=== PATIENT | female | born 1950 | race Caucasian/White ===

== ENCOUNTER 2017-06-28 16:12 | Emergency (ER) ==
[2017-06-28 16:20] VITALS: TEMP 98.7; BMI 28.3
[2017-06-28] MEDS ORDERED: ZESTRIL PO STA ×2 (16:37→17:55)
--- NOTE | 2017-06-28 17:48 | CT ---
Exam: Head CT. Date: 06/28/2017. Comparison: None. HISTORY: Pain. TECHNIQUE: Helical scan of the brain was performed. FINDINGS: The calvarium is intact. The paranasal sinuses and mastoid air cells are clear. The brainstem and cerebellum are within normal limits. There is mild cerebral volume loss. No abnor mal intra or extra-axial fluid, mass or mass effect is present. There is no midline shift or hydroce phalus. No large vessel infarct or hemorrhages identified. The smith-white interface is maintained. Impression: No acute intracranial findings. Senile senescent changes.
--- NOTE | 2017-06-28 17:58 | ED.PDOC ---
General ED Provider: Dr. LINO SWANSON Chief Complaint: Hypertension Stated Complaint: HIGH BLOOD PRESSURE Time Seen by Physician: 16:20 (NO LOC HAS SOME HEADACHE ) Mode of Arrival: Walk-In Information Source: Patient Exam Limitations: No limitations Primary Care Provider: ALICIA DAILY Nursing and Triage Documentation Reviewed and Agree: Yes Reviewed sepsis parameters & appropriate labs ordered?: Yes System Inflammatory Response Syndrome: Not Applicable Sepsis Protocol: For patient's 13 years and over: Temp is 96.8 and below OR 101 and greater Pulse >90 BPM Resp >20/minute Acutely Altered Mental Status Are patient's symptoms suggestive of a new infection, such as: -Pneumonia -Skin, Soft Tissue -Endocarditis -UTI -Bone, Joint Infection -Implantable Device -Acute Abdominal Infection -Wound Infection -Meningitis -Blood Stream Catheter Infection -Unknown System Inflammatory Response Syndrome: Not Applicable Cardiovascular Complaint Exam - Hypertension Complaint/Exam Onset/Duration: 2 HRS AGO 190/100 Symptoms Are: Still present Timing: Constant Reported B/P Prior to Arrival: SEE ABOVE Aggravating: Reports: None Alleviating: Reports: None Associated Signs and Symptoms: Denies: Chest pain, Vision changes, Anxiety, Recent stress, Headache, Numbness, Tingling, Weakness, Dizziness, Short of air, Swelling Related History: Reports: Similar episode Related Surgical History: Reports: None Cardiac Risk Factors: Reports: Hypertension Recent Change in Medications: No A/V Nicking: No Papilledema Present: No JVD Present: No Carotid Bruit Present: No Femoral Pulses Bounding: No Differential Diagnoses: Hypertension Quality Indicator For Non-Traumatic Chest Pain/Syncope: EKG Performed Review of Systems - Review Of Systems Constitutional: Reports: No symptoms Eyes: Reports: No symptoms Ears, Nose, Mouth, Throat: Reports: No symptoms Respiratory: Reports: No symptoms Cardiac: Reports: Chest pain GI: Reports: No symptoms : Reports: No symptoms Musculoskeletal: Reports: No symptoms Skin: Reports: No symptoms Neurological: Reports: No symptoms Endocrine: Reports: No symptoms Hematologic/Lymphatic: Reports: No symptoms All Other Systems: Reviewed and Negative Past Medical History - Past Medical History Endocrine: Reports: DM 2, Hypothyroid Cardiovascular: Reports: Hypertension Respiratory: Reports: None Hematological: Reports: None Gastrointestinal: Reports: None Genitourinary: Reports: None Neuro/Psych: Reports: None Musculoskeletal: Reports: None Cancer: Reports: None Last Menstrual Period: hysterectomy - Surgical History General Surgical History: Reports: Lap Band - Family History Family History: Reports: Unknown - Social History Smoking Status: Never smoker Hx Substance Use: No Alcohol Screening: None Physical Exam - Physical Exam Appearance: Well-appearing, No pain distress, Well-nourished Eyes: SUSAN, EOMI, Conjunctiva clear ENT: Ears normal, Nose normal, Oropharynx normal Respiratory: Airway patent, Breath sounds clear, Breath sounds equal, Respirations nonlabored Cardiovascular: RRR, Pulses normal, No rub, No murmur GI/: Soft, Nontender, No masses, Bowel sounds normal, No Organomegaly Musculoskeletal: Normal strength, ROM intact, No edema, No calf tenderness Skin: Warm, Dry, Normal color Neurological: Sensation intact, Motor intact, Reflexes intact, Cranial nerves intact, Alert, Oriented Psychiatric: Affect appropriate, Mood appropriate Interpretation - Radiology Interpretation Radiology Interpretation By: Radiologist Radiology Results: No acute changes Critical Care Note - Critical Care Note Total Time (mins): 0 Course - Course Hematology/Chemistry: 06/28/17 16:49 06/28/17 16:49 Orders, Labs, Meds: Lab Review 06/28/17 06/28/17 06/28/17 16:49 16:49 16:49 WBC 6.52 RBC 4.89 Hgb 14.0 Hct 41.5 MCV 84.9 MCH 28.6 MCHC 33.7 RDW Coeff of Tee 13.4 Plt Count 250 Immature Gran % (Auto) 0.3 Neut % (Auto) 61.0 Lymph % (Auto) 24.8 Atkinson % (Auto) 10.4 H Eos % (Auto) 2.0 Baso % (Auto) 1.5 Immature Gran # (Auto) 0.0 Neut # (Auto) 4.0 Lymph # (Auto) 1.6 Atkinson # (Auto) 0.7 Eos # (Auto) 0.1 Baso # (Auto) 0.1 Sodium 139 Potassium 4.2 Chloride 105 Carbon Dioxide 23 Anion Gap 15.2 BUN 17 Creatinine 0.85 Estimated GFR (MDRD) 67.00 BUN/Creatinine Ratio 20.00 Glucose 110 Calcium 9.4 Total Bilirubin 0.3 AST 15 ALT 19 Alkaline Phosphatase 58 Total Creatine Kinase 52 Troponin I < 0.0100 Total Protein 7.0 Albumin 3.7 Globulin 3.3 Albumin/Globulin Ratio 1.12 Orders Category Date Time Status CBC W/ AUTO DIFF Stat LAB 06/28/17 16:49 Completed COMPREHENSIVE METABOLIC PANEL Stat LAB 06/28/17 16:49 Completed CREATINE KINASE Stat LAB 06/28/17 16:49 Completed TROPONIN I Stat LAB 06/28/17 16:49 Completed Lisinopril [Zestril] MEDS 06/28/17 16:37 Discontinued 20 mg PO ONCE STA Lisinopril [Zestril] MEDS 06/28/17 17:55 Stat 20 mg PO ONCE STA CT HEAD W/O CONTRAST Stat RADS 06/28/17 16:53 Completed Medications Generic Name Dose Route Start Last Admin Trade Name Freq PRN Reason Stop Dose Admin Lisinopril 20 mg 06/28/17 17:55 Zestril PO 06/28/17 17:56 ONCE STA Discontinued Medications Generic Name Dose Route Start Last Admin Trade Name Freq PRN Reason Stop Dose Admin Lisinopril 20 mg 06/28/17 16:37 06/28/17 16:46 Zestril PO 06/28/17 16:38 20 mg ONCE STA Administration Vital Signs: Temp Pulse Resp BP Pulse Ox 06/28/17 16:12 98.7 F 73 16 202/93 H 98 SHABNAM Risk Score SHABNAM Risk Score: Risk Score Odds of by 30D 0 0.1 (0.1-0.2) 1 0.3 (0.2-0.3) 2 0.4 (0.3-0.5) 3 0.7 (0.6-0.9) 4 1.2 (1.0-1.5) 5 2.2 (1.9-2.6) 6 3.0 (2.5-3.6) 7 4.8 (3.8-6.1) Departure - Departure Time of Disposition: 19:00 Disposition: HOME SELF-CARE Discharge Problem: Hypertension Qualifiers: Hypertension type: unspecified Qualified Code(s): I10 - Essential (primary) hypertension Instructions: Hypertension (ED) Condition: Good Pt referred to PMD for follow-up: Yes IPMP verified?: No Additional Instructions: Please call your Family Physician as soon as possible to schedule a follow-up appointment. Allergies/Adverse Reactions: Allergies Penicillins Adverse Reaction (Verified 06/28/17 16:21) Home Medications: Ambulatory Orders Enalapril Maleate [Vasotec] 5 mg PO BID 05/01/13 Famotidine [Pepcid] 1 tab PO DAILY 05/01/13 Labetalol HCl [Trandate] 100 tab PO BID 05/01/13 Calcium Carbonate/Vitamin D3 [Calcium 600 + Vit D Tablet] 1 each PO DAILY Fluticasone Propionate [Flonase Allergy Relief] 9.9 ml NS DAILY 06/28/17 Disposition Discussed With: Patient
[2017-06-28 18:42] VITALS: BP 181/87
[2017-06-28] MEDS ORDERED: NORVASC PO STA (18:45)
[2017-06-28] MEDS ORDERED: CATAPRES PO STA (19:12)
== END 2017-06-28 20:05 | disposition home or self-care (01) ==
LOC: ED 16:12
DX: I10 Essential (primary) hypertension (principal); R51 Headache; E11.9 Type 2 diabetes mellitus without complications; E03.9 Hypothyroidism, unspecified
CPT/HCPCS: 36415; 80053; 82550; 84484; 85025; 99284

== ENCOUNTER 2017-08-26 09:58 | Outpatient (CLI) ==
--- NOTE | 2017-08-27 11:35 | MAMMO ---
EXAM: Bilateral digital screening mammogram (2-D and 3-D) History: Screening Comparison: Bilateral mammogram 08/01/2014 Findings: MLO and CC views of bilateral breasts demonstrate scattered fibroglandular breast parenchy ma. CAD was reviewed by the radiologist. Tomosynthesis was performed. Stable benign calcification w ithin the left breast. There are no dominant masses, no suspicious microcalcifications and no frank ectural distortions. Impression: Benign stable mammogram. Recommend followup routine screening mammography in 1 year. BIRADS 2
== END 2017-08-26 09:59 | disposition home or self-care (01) ==
LOC: RAD 09:58
PROVIDERS: ATTEND Family Medicine
DX: Z12.31 Encounter for screening mammogram for malignant neoplasm of breast (principal)
CPT/HCPCS: 77067

== ENCOUNTER 2017-09-15 12:58 | Outpatient (CLI) | payer OTHER ==
--- NOTE | 2017-09-15 13:58 | DI ---
EXAM: Three views of the right fingers. History: Pain of the right third digit. Findings: No acute fracture or dislocation. Mild to moderate polyarticular joint space narrowing wi th small osteophytes. Incidental subchondral cyst at the base of the middle phalanx of the third dig it most likely degenerative in nature. No periostitis. Soft tissue swelling of the third digit. Impression: 1. No acute osseous abnormality. 2. Mild to moderate osteoarthritis.
== END 2017-09-15 12:59 | disposition home or self-care (01) ==
LOC: RAD 12:58
PROVIDERS: ATTEND Family Medicine
DX: M79.644 Pain in right finger(s) (principal)

== ENCOUNTER 2018-02-14 12:48 | Outpatient (CLI) | payer OTHER ==
--- NOTE | 2018-02-14 15:16 | MRI ---
EXAM: MRI right shoulder without contrast. HISTORY: Right cuff tendonitis. Ongoing pain. No new injury. No right shoulder surgery reported.. TECHNIQUE: Using a local coil on a high field strength magnet multiplanar multisequence MRI was perf ormed of the right shoulder without intravenous or intra-articular gadolinium contrast.. COMPARISON: MRI right shoulder 08/01/2014. FINDINGS: I do not have prior radiographs of the right shoulder available for comparison at the time of this dictation. A Type I/I I acromion present. Coracoacromial ligament/arch intact with thickening. Right acromiocl avicular joint degenerative arthrosis/osteoarthrosis. Deltoid musculature normal signal intensity. Free fluid subacromial/subdeltoid bursa. Muscle bulk of the rotator cuff shows no acute muscle strain or definitive atrophy. Diffuse supraspi natus tendinosis. High-grade tearing supraspinatus with full-thickness extent.. This area of tearin g is full width and measures upwards of 24 mm in length. Infraspinatus tendinosis. Posterior inferio r intact teres minor tendon fibers. Anterior subscapularis tendinosis with low grade partial thickne ss rim rent tearing over cranial to central fibers. The long head of the biceps tendon shows intact fibers located in expected position within the bicipital groove with tendinosis and partial thickness tearing. The right humeral head is within normal limit in morphology and seated. No right glenohumeral joint centered subchondral bone marrow edema or bone erosions. Small right glenohumeral joint effusion. R ight glenoid labrum grossly intact on this non-arthrographic examination.. IMPRESSION: Right acromioclavicular joint degenerative arthrosis/osteoarthrosis. Diffuse supraspinatus tendinosis. High-grade tearing with full-thickness extent. This is full width measuring upwards of 24 mm in length. Infraspinatus tendinosis. Free fluid subacromial/subdeltoid bursa. The anterior subscapularis tendinosis with low grade partial thickness rim rent tearing over cranial to central fibers. Proximal long head biceps tendinosis and partial thickness tearing. Small right glenohumeral joint effusion. Recommendation is obtainment and correlation with plain film radiographs of the right shoulder as non e are available for comparison at the time of this dictation.
== END 2018-02-14 12:49 | disposition home or self-care (01) ==
LOC: RAD 12:48
PROVIDERS: ATTEND Orthopaedic Surgery
DX: M75.81 Other shoulder lesions, right shoulder (principal)

== ENCOUNTER 2018-04-27 10:00 | Outpatient (RCR) ==
--- NOTE | 2018-04-21 16:14 | RS.OPPTEV2 ---
Date of Note: 04/21/18 Visit #: 1 Number of visits approved by Insurance: n/a Date of Evaluation: 04/21/18 Payer Source: MEDICARE Date of Onset/Injury/Change in Status: 04/08/18 Surgery Performed?: Yes (R total shld replacement 04/08/18) Treatment Diagnosis: aftercare following total shld replacement, shld pain History of Condition/Mechanism of Injury:: pt reports has had long history of R shld pain. Reports that she underwent R reverse total shld replacement on . Prior Level of Function.....Patient was independent with: ADL's, Self Care, Work /Vocation, Caregiving, Ambulation/Mobility, Community Integration/Access Functional Limitations: Sleep, Self Care, ADL's, Reaching, Pushing, Pulling, Lifting, Carrying Current Subjective/complaints:: pt reports that she got her tim out earlier this week. States the doctor wants her to work on ROM. Treatment Side (optional): Right *Precautions: LIMIT EXTERNAL ROTATION TO NEUTRAL Medical History Medical History: Hypertension, Arthritis Surgical History: Shoulder Replacement (04/08/18) Smoking Status: Never smoker Hx Home Medications: tylenol Patient's Goals: return to normal daily activities with less pain, be able to do my own hair. Pain Assessment - Pain Description Pain Location: R shld Pain Description: Aching Current Pain Intensity: 4/10 Functional Outcome Measure UE Functional Index: 22 - G Codes & Severity Modifier G Codes & Modifier: n/a Source of G Code score: n/a Observation - Observation Inspection: incisions appear closed no open areas, with no erythema noted. Posture: Forward Head, Rounded Shoulders, Increased Thoracic Kyphosis Handedness: Right Gait - Gait Pattern General Gait Pattern Observation: No Deviations/Normal General Range of Motion: LUE and BLE WFL's Muscle Strength: LUE 5/5. BLE 5/5. R UE elbow, wrist and hand atleast 3/5, Shoulder ROM: Left WFL's Shoulder Muscle Strength: Left WFL's - Right Shoulder ROM Right Shoulder Flexion: 61 (PROM) Right Shoulder Abduction: 50 (PROM) Right Shoulder Internal Rotation: 28 Right Shoulder External Rotation: 18 Right Shoulder ROM Limitations: Soft Tissue Tightness, Muscle Weakness, Pain Palpation Palpation Findings: Tenderness Comments:: tenderness noted to anterior and lateral shld. Sensation - Sensation Right Upper Extremity: Intact/Normal Left Upper Extremity: Intact/Normal Right Lower Extremity: Intact/Normal Left Lower Extremity: Intact/Normal Balance - Sitting Balance Static Sitting Balance: Normal Dynamic Sitting Balance: Normal - Standing Balance Static Standing Balance: Normal Dynamic Standing Balance: Normal - Heat/Cryotherapy Treatment: Cryotherapy Comments:: R shld Interventions - Exercise/Activities/Manual Therapy Exercises/Activities: pt received PROM R shld flex, abd, as well as IR and ER within pain free ROM. pt performed AAROM flex, pendulum ex, scapular retraction. Manual Therapy: n/a HOME EXERCISE PROGRAM: pt given written HEP including gentle scapular retraction , pendulum, AAROM shld flex. - Charges Timed Code Treatment Minutes: 48 Total Treatment Time: 52 Procedures billed for this date of service:: linda de la torre, CP EVALUATION COMPLEXITY LEVEL EVALUATION COMPLEXITY LEVEL: HISTORY: Low (HTN, shld replacement), EXAM OF BODY SYSTEMS: Medium (ROM, pain, edema, strength), CLINICAL PRESENTATION: Medium, CLINICAL DECISION MAKING: Low Assessment Assessment: pt presents s/p R total shld replacement. pt presents with edema R shld, decreased ROM, decreased strength which limits ability to perform ADL's. Patient Education: Home Exercise Program, Education of Plan of Care Rehab Potential: Good Short Term Goals Goal #1: pt independent with initial HEP Goal to be met by: 05/05/18 Goal #2: Improve R shld ROM flex 75 abd 65 Goal to be met by: 05/05/18 Goal #3: pt with decreased edema R shld Goal to be met by: 05/05/18 [employer] Driver Goals Goal #1: Improve R shld ROM flex 90 abd 80, IR WFL's Goal to be met by: 05/19/18 Goal #2: pt able to perform ADL's independently including curling her hair. Goal to be met by: 05/19/18 Goal #3: Decrease pain <4/10 with activity Goal to be met by: 05/19/18 Plan - Treatment to be Provided Procedures: Therapeutic Exercises, Therapeutic Activity, Manual Therapy, Patient Education Modalities: Electrical Stimulation, Cryotherapy, Hot Packs - Treatment Plan Frequency: 2-3x a week Duration: 4 weeks Dates of [employer] Driver Goals: 05/19/18 Expiration date of current Insurance Approval:: n/a - Treatment Code (1) Aftercare following shoulder joint replacement surgery Code(s): Z47.1 - AFTERCARE FOLLOWING JOINT REPLACEMENT SURGERY; Z96.619 - PRESENCE OF UNSPECIFIED ARTIFICIAL SHOULDER JOINT Qualifiers: Laterality: right Qualified Code(s): Z47.1 - Aftercare following joint replacement surgery; Z96.611 - Presence of right artificial shoulder joint (2) Pain in joint, shoulder region Code(s): M25.519 - PAIN IN UNSPECIFIED SHOULDER Qualifiers: Laterality: right Qualified Code(s): M25.511 - Pain in right shoulder (3) Effusion of shoulder joint Code(s): M25.419 - EFFUSION, UNSPECIFIED SHOULDER Qualifiers: Laterality: right Qualified Code(s): M25.411 - Effusion, right shoulder (4) Muscle weakness Code(s): M62.81 - MUSCLE WEAKNESS (GENERALIZED)
--- NOTE | 2018-04-25 11:58 | RS.OPPTDN ---
Subjective Date of Note: 04/25/18 Visit #: 2 Number of visits approved by Insurance: NA Date of Evaluation: 04/21/18 Payer Source: MEDICARE Treatment Diagnosis: aftercare following total shld replacement, shld pain Current Subjective/complaints:: Patient reports stiffness and discomfort with right shoulder passive flexion. She does report she is pleased with increase in flexibility following treatment today. *Precautions: LIMIT EXTERNAL ROTATION TO NEUTRAL Pain Assessment - Pain Description Pain Location: right shoulder Pain Description: Aching Pain Description: soreness Current Pain Intensity: mild to mod - Heat/Cryotherapy Treatment: Cryotherapy ([id number] Ended with CP to the right shoulder following EX. Patient in sitting. ) Interventions - Exercise/Activities/Manual Therapy Exercises/Activities: PROM right shoulder into flex, abd, and elbow flex/ext. AAROM flex. Began isometric shoulder ext and add with manual resistance and with pillow. Isometric right shoulder flexion with therapist manual resistance and patients left hand for resistance. Wand for short flex/ext and chest press with assist throughtout. Pendulum ex, with progession to active shoulder flexion (modified cuff series). In sitting, scapular retraction, shoulder shrugs , and lateral cervical flexion stretching. Table slides. Patient education of dx , joint mechcanics, safety, and HEP. Patient given copies of new exercises. Total minutes of Exercise: 44mins Manual Therapy: n/a HOME EXERCISE PROGRAM: pt given written HEP including gentle scapular retraction , pendulum, AAROM shld flex. Isometric right shoulder flex, ext, and add with pillow and manual resistance. Active shoulder flexion in Codman's/cuff series position. Assisted wand for short flex/ext and short chest press in supine. Table slides. - Objective Findings Observations,measurements,etc.: Progress passive right shoulder flexion to 90- 95 degree range. - Charges Timed Code Treatment Minutes: 42mins Total Treatment Time: 54mins Procedures billed for this date of service:: EX3, CP Assessment: Patient motivated to progress with HEP. She is pleased with progression of PROM today. Patient Education: Education of diagnosis, Body/Joint mechanics, Home Exercise Program, Home Safety, Activity Modification Patient demonstrates compliance with HEP?: Yes Short Term Goals Goal #1: pt independent with initial HEP Goal to be met by: 05/05/18 Progress towards Goal:: Progressing Goal #2: Improve R shld ROM flex 75 abd 65 Goal to be met by: 05/05/18 Progress towards Goal:: Progressing Goal #3: pt with decreased edema R shld Goal to be met by: 05/05/18 Care Home Goals Goal #1: Improve R shld ROM flex 90 abd 80, IR WFL's Goal to be met by: 05/19/18 Goal #2: pt able to perform ADL's independently including curling her hair. Goal to be met by: 05/19/18 Goal #3: Decrease pain <4/10 with activity Goal to be met by: 05/19/18 Plan Dates of Care Home Goals: 05/19/18 Expiration date of current Insurance Approval:: 05/19/18 PLAN: Progress with ROM and gentle strengthening of the right shoulder and UE's.
--- NOTE | 2018-04-27 14:52 | RS.OPPTDN ---
Subjective Date of Note: 04/27/18 Visit #: 3 Number of visits approved by Insurance: NA Date of Evaluation: 04/21/18 Payer Source: MEDICARE Treatment Diagnosis: aftercare following total shld replacement, shld pain Current Subjective/complaints:: Patient reports mild soreness following last session. States she is working on HEP. *Precautions: LIMIT EXTERNAL ROTATION TO NEUTRAL Pain Assessment - Pain Description Pain Location: right shoulder Current Pain Intensity: mild to mod Interventions - Exercise/Activities/Manual Therapy Exercises/Activities: PROM right shoulder into flex, abd, and elbow flex/ext. AAROM flex. Isometric shoulder ext and add with manual resistance and with pillow. Isometric right shoulder IR and ER in neutral. Wand for short flex/ext and chest press with assist throughtout. Began wand IR and ER to neutral. Isometric IR with patient holding ball. Assisted scap protraction and retraction with therapist holding right UE. In sitting, scapular retraction, shoulder shrugs, and lateral cervical flexion stretching. Table slides. Began hand clasped assisted bilateral shoulder flexion. Patient education of dx, joint mechanics, and HEP. Total minutes of Exercise: 44mins Manual Therapy: n/a HOME EXERCISE PROGRAM: pt given written HEP including gentle scapular retraction , pendulum, AAROM shld flex. Isometric right shoulder flex, ext, and add with pillow and manual resistance. Active shoulder flexion in Codman's/cuff series position. Assisted wand for short flex/ext and short chest press in supine. Table slides. - Charges Timed Code Treatment Minutes: 44mins Total Treatment Time: 44mins Procedures billed for this date of service:: EX3 Assessment: Patient with improved tolerance to PROM. Patient Education: Body/Joint mechanics, Home Exercise Program, Activity Modification Patient demonstrates compliance with HEP?: Yes Short Term Goals Goal #1: pt independent with initial HEP Goal to be met by: 05/05/18 Progress towards Goal:: Progressing Goal #2: Improve R shld ROM flex 75 abd 65 Goal to be met by: 05/05/18 Progress towards Goal:: Progressing Goal #3: pt with decreased edema R shld Goal to be met by: 05/05/18 [employer] Goals Goal #1: Improve R shld ROM flex 90 abd 80, IR WFL's Goal to be met by: 05/19/18 Goal #2: pt able to perform ADL's independently including curling her hair. Goal to be met by: 05/19/18 Goal #3: Decrease pain <4/10 with activity Goal to be met by: 05/19/18 Plan Dates of Nursing Home Goals: 05/19/18 Expiration date of current Insurance Approval:: 05/19/18 PLAN: Progress with PROM and gentle strengthening of the right UE.
== END 2018-04-28 23:59 | disposition short-term general hospital (02) ==
PROVIDERS: ATTEND Orthopaedic Surgery
DX: Z47.1 Aftercare following joint replacement surgery (principal); Z96.611 Presence of right artificial shoulder joint; M25.511 Pain in right shoulder; M25.411 Effusion, right shoulder; M62.81 Muscle weakness (generalized)

== ENCOUNTER 2018-05-25 10:00 | Outpatient (RCR) ==
--- NOTE | 2018-04-29 13:48 | RS.OPPTDN ---
Subjective Date of Note: 04/29/18 Visit #: 4 Number of visits approved by Insurance: NA Date of Evaluation: 04/21/18 Payer Source: MEDICARE Treatment Diagnosis: aftercare following total shld replacement, shld pain Current Subjective/complaints:: Patient reports muscle soreness, but feels she is porgressing well with exercise. *Precautions: LIMIT EXTERNAL ROTATION TO NEUTRAL Pain Assessment - Pain Description Pain Location: right shoulder and upper arm Pain Description: Tightness, Dull, Aching Current Pain Intensity: mild to mod - Heat/Cryotherapy Treatment: Hot Pack ([id number] to the right shoulder and upper arm prior to EX. Patient in supine. ) Interventions - Exercise/Activities/Manual Therapy Exercises/Activities: PROM right shoulder into flex, abd, and elbow flex/ext. AAROM flex and limited IR/ER. Isometric shoulder ext and add with manual resistance and with pillow. Isometric right shoulder IR and ER in neutral. Wand for short flex/ext and chest press with assist throughtout. Wand IR and ER to neutral. Isometric IR with patient holding ball. Assisted scap protraction and retraction with therapist holding right UE. In sitting, scapular retraction, shoulder shrugs, and lateral cervical flexion stretching. Assisted table slide. Began short range right shoulder flex/ext with patient holding wand for assist. Patient education of dx, joint mechanics, and progression of HEP. Total minutes of Exercise: 43mins Manual Therapy: n/a HOME EXERCISE PROGRAM: pt given written HEP including gentle scapular retraction , pendulum, AAROM shld flex. Isometric right shoulder flex, ext, and add with pillow and manual resistance. Active shoulder flexion in Codman's/cuff series position. Assisted wand for short flex/ext and short chest press in supine. Table slides. - Objective Findings Observations,measurements,etc.: Passive right shoulder flexion to 95 degrees today. - Charges Timed Code Treatment Minutes: 43mins Total Treatment Time: 58mins Procedures billed for this date of service:: HP, EX3 Assessment: Patient progressing with PROM and is consistently working on HEP. Patient Education: Body/Joint mechanics, Home Exercise Program Patient demonstrates compliance with HEP?: Yes Short Term Goals Goal #1: pt independent with initial HEP Goal to be met by: 05/05/18 Progress towards Goal:: Progressing Goal #2: Improve R shld ROM flex 75 abd 65 Goal to be met by: 05/05/18 Progress towards Goal:: Progressing Goal #3: pt with decreased edema R shld Goal to be met by: 05/05/18 Eight Section Blower Goals Goal #1: Improve R shld ROM flex 90 abd 80, IR WFL's Goal to be met by: 05/19/18 Goal #2: pt able to perform ADL's independently including curling her hair. Goal to be met by: 05/19/18 Goal #3: Decrease pain <4/10 with activity Goal to be met by: 05/19/18 Plan Dates of Jail Goals: 05/19/18 Expiration date of current Insurance Approval:: 05/19/18 PLAN: Progress with PROM and AAROM.
--- NOTE | 2018-05-02 15:21 | RS.OPPTDN ---
Subjective Date of Note: 05/02/18 Visit #: 5 Number of visits approved by Insurance: NA Date of Evaluation: 04/21/18 Payer Source: MEDICARE Treatment Diagnosis: aftercare following total shld replacement, shld pain Current Subjective/complaints:: Patient states she has been taking off her sling more over the weekend cue to right elbow being so sore. States she is very cautious when sling is off. States she is partially able to do her hair. *Precautions: LIMIT EXTERNAL ROTATION TO NEUTRAL Pain Assessment - Pain Description Pain Location: right shoulder and upper arm Pain Description: Tightness, Dull, Aching Current Pain Intensity: 3-4/10 - Heat/Cryotherapy Treatment: Hot Pack ([id number] to the right shoulder joint prior to EX. Patient in supine. ) Interventions - Exercise/Activities/Manual Therapy Exercises/Activities: PROM right shoulder into flex, abd, and elbow flex/ext. AAROM flex and limited IR/ER. Isometric shoulder ext and add with manual resistance and with pillow. Isometric right shoulder IR and ER in neutral. Wand for short flex/ext and chest press with assist throughtout. Wand IR and ER to neutral. Isometric IR with patient holding ball. Scap protraction and retraction while holding a ball between hands. In sitting, scapular retraction , shoulder shrugs, and lateral cervical flexion stretching. Assisted table slide and progress with forward flexion with gentle stretch. Patient education of safety with ADL's and progression of HEP. Total minutes of Exercise: 36mins Manual Therapy: n/a HOME EXERCISE PROGRAM: pt given written HEP including gentle scapular retraction , pendulum, AAROM shld flex. Isometric right shoulder flex, ext, and add with pillow and manual resistance. Active shoulder flexion in Codman's/cuff series position. Assisted wand for short flex/ext and short chest press in supine. Table slides. - Charges Timed Code Treatment Minutes: 36mins Total Treatment Time: 51mins Procedures billed for this date of service:: HP, EX2 Assessment: Patient motivated to progress, but is following safety precautions. Patient Education: Education of diagnosis, Home Exercise Program, Home Safety, Activity Modification Comments: Discussion of safety when taking off sling. Patient demonstrates compliance with HEP?: Yes Short Term Goals Goal #1: pt independent with initial HEP Goal to be met by: 05/05/18 Progress towards Goal:: Progressing Goal #2: Improve R shld ROM flex 75 abd 65 Goal to be met by: 05/05/18 Progress towards Goal:: Progressing Goal #3: pt with decreased edema R shld Goal to be met by: 05/05/18 Progress towards Goal:: Progressing A&P Technician Goals Goal #1: Improve R shld ROM flex 90 abd 80, IR WFL's Goal to be met by: 05/19/18 Goal #2: pt able to perform ADL's independently including curling her hair. Goal to be met by: 05/19/18 Progress towards goal: Progressing Goal #3: Decrease pain <4/10 with activity Goal to be met by: 05/19/18 Plan Dates of A&P Technician Goals: 05/19/18 Expiration date of current Insurance Approval:: 05/19/18 PLAN: Progress with ROM and gentle strengthening.
--- NOTE | 2018-05-04 15:10 | RS.OPPTDN ---
Subjective Date of Note: 05/04/18 Visit #: 6 Number of visits approved by Insurance: NA Date of Evaluation: 04/21/18 Payer Source: MEDICARE Treatment Diagnosis: aftercare following total shld replacement, shld pain Current Subjective/complaints:: Patient reports she is removing sling for short periods as physician said was alright. She reports pain is improving. Reports she is progressing with exercises. *Precautions: LIMIT EXTERNAL ROTATION TO NEUTRAL Pain Assessment - Pain Description Pain Location: right shoulder Current Pain Intensity: mild at rest, mod with end range stretch Interventions - Exercise/Activities/Manual Therapy Exercises/Activities: PROM right shoulder into flex, abd, and elbow flex/ext. AAROM flex and limited IR/ER. Isometric shoulder ext and add with manual resistance. Isometric right shoulder IR and ER in neutral. Wand for short flex/ ext and chest press with assist throughtout. Wand IR and ER to neutral. Isometric IR with patient holding ball. Scap protraction and retraction while holding a ball between hands. Total minutes of Exercise: 44mins Manual Therapy: n/a HOME EXERCISE PROGRAM: pt given written HEP including gentle scapular retraction , pendulum, AAROM shld flex. Isometric right shoulder flex, ext, and add with pillow and manual resistance. Active shoulder flexion in Codman's/cuff series position. Assisted wand for short flex/ext and short chest press in supine. Table slides. - Objective Findings Observations,measurements,etc.: Passive right shoulder flexion to 132 degrees. - Charges Timed Code Treatment Minutes: 44mins Total Treatment Time: 47mins Procedures billed for this date of service:: EX3 Assessment: Patient progressing well with PROM, AAROM, and limited isometrics. She is cautious of surgical precatuions. Patient Education: Home Exercise Program, Home Safety, Activity Modification Comments: PT spoke with physicians office to confirm patients surgery was a reverse shoulder replacement and precations. Nurse confirmed dx and only resriction is ER past neutral. Patient demonstrates compliance with HEP?: Yes Short Term Goals Goal #1: pt independent with initial HEP Goal to be met by: 05/05/18 Progress towards Goal:: Progressing Goal #2: Improve R shld ROM flex 75 abd 65 Goal to be met by: 05/05/18 Progress towards Goal:: Progressing Goal #3: pt with decreased edema R shld Goal to be met by: 05/05/18 Progress towards Goal:: Progressing Custodial Goals Goal #1: Improve R shld ROM flex 90 abd 80, IR WFL's Goal to be met by: 05/19/18 Goal #2: pt able to perform ADL's independently including curling her hair. Goal to be met by: 05/19/18 Progress towards goal: Progressing Goal #3: Decrease pain <4/10 with activity Goal to be met by: 05/19/18 Plan Dates of Custodial Goals: 05/19/18 Expiration date of current Insurance Approval:: 05/19/18 PLAN: Progress with PROM and AAROM.
--- NOTE | 2018-05-06 13:51 | RS.OPPTDN ---
Subjective Date of Note: 05/06/18 Visit #: 7 Number of visits approved by Insurance: NA Date of Evaluation: 04/21/18 Payer Source: MEDICARE Treatment Diagnosis: aftercare following total shld replacement, shld pain Current Subjective/complaints:: Patient reports she was concerned that she injured her anterior right shoulder joint *Precautions: LIMIT EXTERNAL ROTATION TO NEUTRAL Pain Assessment - Pain Description Pain Location: right shoulder Pain Description: Tightness, Dull, Aching Current Pain Intensity: mild at rest Interventions - Exercise/Activities/Manual Therapy Exercises/Activities: PROM right shoulder into flex, abd, and elbow flex/ext. AAROM flex and limited IR/ER. Isometric shoulder ext and add with manual resistance. Isometric right shoulder IR and ER in neutral. Wand for shoulder flex/ext with increased range. Also, chest press with assist throughtout. With ball between hands, isometric IR, chest press, short flexion/ext, and triceps press overhead, all with assist. Scap protraction and retraction while holding a ball between hands. In sitting, shoulder shrugs, scap retraction, and assisted cervical lateral flexion stretch. Total minutes of Exercise: 50mins Manual Therapy: n/a HOME EXERCISE PROGRAM: pt given written HEP including gentle scapular retraction , pendulum, AAROM shld flex. Isometric right shoulder flex, ext, and add with pillow and manual resistance. Active shoulder flexion in Codman's/cuff series position. Assisted wand for short flex/ext and short chest press in supine. Table slides. - Objective Findings Observations,measurements,etc.: Passive right shoulder flexion to approx 128 degrees and abduction to 92 degrees. - Charges Timed Code Treatment Minutes: 50mins Total Treatment Time: 53mins Procedures billed for this date of service:: EX3 Assessment: Patient progressing well with basic exercise per protocol. Patient Education: Body/Joint mechanics, Home Exercise Program Patient demonstrates compliance with HEP?: Yes Short Term Goals Goal #1: pt independent with initial HEP Goal to be met by: 05/05/18 Progress towards Goal:: Progressing Goal #2: Improve R shld ROM flex 75 abd 65 Goal to be met by: 05/05/18 Progress towards Goal:: Progressing Goal #3: pt with decreased edema R shld Goal to be met by: 05/05/18 Progress towards Goal:: Progressing Coal Washer Tender Goals Goal #1: Improve R shld ROM flex 90 abd 80, IR WFL's Goal to be met by: 05/19/18 Goal #2: pt able to perform ADL's independently including curling her hair. Goal to be met by: 05/19/18 Progress towards goal: Progressing Goal #3: Decrease pain <4/10 with activity Goal to be met by: 05/19/18 Plan Dates of Group Home Goals: 05/19/18 Expiration date of current Insurance Approval:: 05/19/18 PLAN: Progress with PROM, AAROM, and light isometrics in safe ranges.
--- NOTE | 2018-05-09 11:55 | RS.OPPTDN ---
Subjective Date of Note: 05/09/18 Visit #: 8 Number of visits approved by Insurance: NA Date of Evaluation: 04/21/18 Payer Source: MEDICARE Treatment Diagnosis: aftercare following total shld replacement, shld pain Current Subjective/complaints:: Patient reports she is doing more activity at home, but follows precautions. *Precautions: LIMIT EXTERNAL ROTATION TO NEUTRAL Pain Assessment - Pain Description Pain Location: right shoulder Pain Description: Tightness Current Pain Intensity: no pain at rest Interventions - Exercise/Activities/Manual Therapy Exercises/Activities: PROM right shoulder into flex, abd, and elbow flex/ext. AAROM flex and limited IR/ER. Isometric shoulder ext and add with manual resistance. Isometric right shoulder IR and ER in neutral. Wand for shoulder flex/ext with increased range, and chest press. Wand with yellow theraband resisted extension in short range. With ball between hands, isometric IR, chest press, short flexion/ext, and triceps press overhead, all with assist. Scap protraction and retraction. Began overhead shoulder pulleys for flexion only. Total minutes of Exercise: 48mins Manual Therapy: n/a HOME EXERCISE PROGRAM: pt given written HEP including gentle scapular retraction , pendulum, AAROM shld flex. Isometric right shoulder flex, ext, and add with pillow and manual resistance. Active shoulder flexion in Codman's/cuff series position. Assisted wand for short flex/ext and short chest press in supine. Table slides. - Charges Timed Code Treatment Minutes: 48mins Total Treatment Time: 50mins Procedures billed for this date of service:: EX3 Assessment: Progressing well with exercise and with light ADL's in her home. Patient Education: Home Exercise Program Patient demonstrates compliance with HEP?: Yes Short Term Goals Goal #1: pt independent with initial HEP Goal to be met by: 05/05/18 Progress towards Goal:: Progressing Goal #2: Improve R shld ROM flex 75 abd 65 Goal to be met by: 05/05/18 Progress towards Goal:: Progressing Goal #3: pt with decreased edema R shld Goal to be met by: 05/05/18 Progress towards Goal:: Progressing Hospital Administrator Goals Goal #1: Improve R shld ROM flex 90 abd 80, IR WFL's Goal to be met by: 05/19/18 Goal #2: pt able to perform ADL's independently including curling her hair. Goal to be met by: 05/19/18 Progress towards goal: Progressing Goal #3: Decrease pain <4/10 with activity Goal to be met by: 05/19/18 Plan Dates of Nursing Home Goals: 05/19/18 Expiration date of current Insurance Approval:: 05/19/18 PLAN: Continue progressing ROM and gentle strengthening exercise.
--- NOTE | 2018-05-11 10:32 | RS.OPPTDN ---
Subjective Date of Note: 05/11/18 Visit #: 9 Number of visits approved by Insurance: NA Date of Evaluation: 04/21/18 Payer Source: MEDICARE Treatment Diagnosis: aftercare following total shld replacement, shld pain Current Subjective/complaints:: Patient reports soreness at the right anterior shoulder joint since doing a modified biceps curl with light weight. States she keeps elbow at side with all exercise and ADL's. *Precautions: LIMIT EXTERNAL ROTATION TO NEUTRAL Pain Assessment - Pain Description Pain Location: right shoulder Pain Description: Tightness Pain Description: soreness Current Pain Intensity: no pain at rest Interventions - Exercise/Activities/Manual Therapy Exercises/Activities: PROM right shoulder into flex, abd, and elbow flex/ext. AAROM flex and limited IR/ER. Isometric shoulder ext and add with manual resistance. Isometric right shoulder IR and ER in neutral. Wand for shoulder flex/ext with increased range, and chest press. Scap protraction and retraction. Discussed overhead shoulder pulleys and is working on setting one up at home. Total minutes of Exercise: 51mins Manual Therapy: Light massage to the right biceps and pectoralis insertion during PROM. HOME EXERCISE PROGRAM: pt given written HEP including gentle scapular retraction , pendulum, AAROM shld flex. Isometric right shoulder flex, ext, and add with pillow and manual resistance. Active shoulder flexion in Codman's/cuff series position. Assisted wand for short flex/ext and short chest press in supine. Table slides. - Charges Timed Code Treatment Minutes: 51mins Total Treatment Time: 54mins Procedures billed for this date of service:: EX3 Assessment: Patient increased soreness but this resolved with gentle ROM and light massage. Patient Education: Home Exercise Program, Activity Modification Patient demonstrates compliance with HEP?: Yes Short Term Goals Goal #1: pt independent with initial HEP Goal to be met by: 05/05/18 Progress towards Goal:: Progressing Goal #2: Improve R shld ROM flex 75 abd 65 Goal to be met by: 05/05/18 Progress towards Goal:: Progressing Goal #3: pt with decreased edema R shld Goal to be met by: 05/05/18 Progress towards Goal:: Progressing Recycling Assistant Goals Goal #1: Improve R shld ROM flex 90 abd 80, IR WFL's Goal to be met by: 05/19/18 Goal #2: pt able to perform ADL's independently including curling her hair. Goal to be met by: 05/19/18 Progress towards goal: Progressing Goal #3: Decrease pain <4/10 with activity Goal to be met by: 05/19/18 Progress towards goal: Progressing Plan Dates of [facility] Goals: 05/19/18 Expiration date of current Insurance Approval:: 05/19/18 PLAN: Continue progression of exercise.
--- NOTE | 2018-05-16 08:54 | RS.OPPTDN ---
Subjective Date of Note: 05/13/18 Visit #: 10 Number of visits approved by Insurance: NA Date of Evaluation: 04/21/18 Payer Source: MEDICARE Treatment Diagnosis: aftercare following total shld replacement, shld pain Current Subjective/complaints:: Patient reports right biceps soreness has resolved. *Precautions: LIMIT EXTERNAL ROTATION TO NEUTRAL Pain Assessment - Pain Description Pain Location: right shoulder Current Pain Intensity: mild Interventions - Exercise/Activities/Manual Therapy Exercises/Activities: PROM right shoulder into flex, abd, and elbow flex/ext. AAROM flex and limited IR/ER. Isometric shoulder ext and add with manual resistance. Isometric right shoulder IR and ER in neutral. Wand for shoulder flex/ext with increased range, and chest press. Ball on the wall and finger ladder. Total minutes of Exercise: 47mins Manual Therapy: Light massage to the right biceps and pectoralis insertion during PROM. Total minutes of Manual Therapy: 4mins HOME EXERCISE PROGRAM: pt given written HEP including gentle scapular retraction , pendulum, AAROM shld flex. Isometric right shoulder flex, ext, and add with pillow and manual resistance. Active shoulder flexion in Codman's/cuff series position. Assisted wand for short flex/ext and short chest press in supine. Table slides. - Objective Findings Observations,measurements,etc.: Patient has gained 3 points on the Upper Extremity Functional scale. Functional deficit now at 68.75%, partially due to post-surgical precautions. - Charges Timed Code Treatment Minutes: 51mins Total Treatment Time: 51mins Procedures billed for this date of service:: EX3 Assessment: Progressing with PROM and HEP. Patient will see physician in approx one week, and continuation orders are expected with progression of protocol. Patient Education: Body/Joint mechanics, Home Exercise Program, Home Safety Patient demonstrates compliance with HEP?: Yes Short Term Goals Goal #1: pt independent with initial HEP Goal to be met by: 05/05/18 Progress towards Goal:: Progressing Goal #2: Improve R shld ROM flex 75 abd 65 Goal to be met by: 05/05/18 Progress towards Goal:: Progressing Goal #3: pt with decreased edema R shld Goal to be met by: 05/05/18 Progress towards Goal:: Progressing Branner Machine Tender Goals Goal #1: Improve R shld ROM flex 90 abd 80, IR WFL's Goal to be met by: 05/19/18 Goal #2: pt able to perform ADL's independently including curling her hair. Goal to be met by: 05/19/18 Progress towards goal: Progressing Goal #3: Decrease pain <4/10 with activity Goal to be met by: 05/19/18 Progress towards goal: Progressing Plan Dates of Branner Machine Tender Goals: 05/19/18 Expiration date of current Insurance Approval:: 05/19/18 PLAN: Continue with current POC.
--- NOTE | 2018-05-16 12:03 | RS.OPPTDN ---
Subjective Date of Note: 05/16/18 Visit #: 11 Number of visits approved by Insurance: NA Date of Evaluation: 04/21/18 Payer Source: MEDICARE Treatment Diagnosis: aftercare following total shld replacement, shld pain Current Subjective/complaints:: Patient reports doing more light activity at home. States she is taking sling off more often. *Precautions: LIMIT EXTERNAL ROTATION TO NEUTRAL Pain Assessment - Pain Description Pain Location: right shoulder Pain Description: soreness Current Pain Intensity: mild - Heat/Cryotherapy Treatment: Hot Pack ([id number] to the right shoulder prior to EX. Patient in supine. ) Interventions - Exercise/Activities/Manual Therapy Exercises/Activities: PROM right shoulder flex, abd, and elbow flex/ext. AAROM flex and limited IR/ER. Isometric shoulder ext and add with manual resistance. Isometric right shoulder IR and ER in neutral. Wand for shoulder flex/ext with increased range, and chest press. Yellow theraband for resistive pulldowns short range. In sitting, assisted flexion and abd. Clasped hands shoulder flexion. Wand bilateral shoulder flexion. Yellow theraband scap retraction, short range. Ball on the wall. Standing yellow theraband resisted IR, shoulder ext, and scap retraction, all short range. Total minutes of Exercise: 43mins Manual Therapy: NA HOME EXERCISE PROGRAM: pt given written HEP including gentle scapular retraction , pendulum, AAROM shld flex. Isometric right shoulder flex, ext, and add with pillow and manual resistance. Active shoulder flexion in Codman's/cuff series position. Assisted wand for short flex/ext and short chest press in supine. Table slides. - Charges Timed Code Treatment Minutes: 43mins Total Treatment Time: 58mins Procedures billed for this date of service:: HP, EX3 Assessment: Patient progressing with light strengthening in safe ranges. Patient Education: Home Exercise Program, Home Safety, Activity Modification Patient demonstrates compliance with HEP?: Yes Short Term Goals Goal #1: pt independent with initial HEP Goal to be met by: 05/05/18 Progress towards Goal:: Met Goal #2: Improve R shld ROM flex 75 abd 65 Goal to be met by: 05/05/18 Progress towards Goal:: Progressing Goal #3: pt with decreased edema R shld Goal to be met by: 05/05/18 Progress towards Goal:: Progressing Map Mounter Goals Goal #1: Improve R shld ROM flex 90 abd 80, IR WFL's Goal to be met by: 05/19/18 Goal #2: pt able to perform ADL's independently including curling her hair. Goal to be met by: 05/19/18 Progress towards goal: Progressing Goal #3: Decrease pain <4/10 with activity Goal to be met by: 05/19/18 Progress towards goal: Progressing Plan Dates of Halfway Goals: 05/19/18 Expiration date of current Insurance Approval:: 05/19/18 PLAN: Progress with PROM, AAROM, and gentle strengthening in safe ranges.
--- NOTE | 2018-05-16 15:02 | RS.PTSUM ---
Progress Note/Summary Date of Note: 05/13/18 Date of Evaluation: 04/21/18 Number of Visits: 10 Number of visits approved by Insurance: n/a Reporting Period for this Progress Note: 04/21/18-05/13/18 Current Complaints/Gains: pt reports pain and soreness getting better with increased periods of going without sling in the home. Objective Measurements/Presentation: Passive R shld flex 142, Improved UE functional score 25/80 was 22/80 on eval. pt limited due to continues to have surgical restrictions. G Codes: n/a Source of G Code Score: n/a - Short Term Goals Goal #1: pt independent with initial HEP Goal to be met by: 05/05/18 Progress towards Goal:: Met Goal #2: Improve R shld ROM flex 75 abd 65 Goal to be met by: 05/05/18 Progress towards Goal:: Met Goal #3: pt with decreased edema R shld Goal to be met by: 05/05/18 Progress towards Goal:: Met - Podiatric Surgeon Goals Goal #1: Improve R shld ROM flex 90 abd 80, IR WFL's Goal to be met by: 05/19/18 Progress towards goal: Progressing Goal #2: pt able to perform ADL's independently including curling her hair. Goal to be met by: 05/19/18 Progress towards goal: Progressing Goal #3: Decrease pain <4/10 with activity Goal to be met by: 05/19/18 Progress towards goal: Progressing - Assessment Assessment of Improvement/Progress: pt has met STG's and is progressing well toward LTG's. pt progress continues to be limited due to surgical restrictions. pt ROM is progressing as well as decreased pain. pt returns to MD next week and anticipate orders to continue and will increase goal dates if orders received. Summary: Patient has made progress towards goals., Patient demonstrates potential to gain increased function with therapy - Plan Plan: Continue Plan of Care Frequency: 2 X week Duration: 1 week Dates of Podiatric Surgeon Goals: 05/19/18 Expiration date of current Insurance Approval:: n/a
--- NOTE | 2018-05-18 12:00 | RS.OPPTDN ---
Subjective Date of Note: 05/18/18 Visit #: 12 Number of visits approved by Insurance: NA Date of Evaluation: 04/21/18 Payer Source: MEDICARE Treatment Diagnosis: aftercare following total shld replacement, shld pain Current Subjective/complaints:: Patient reports she is seeing progress daily. Patient reports she noticed more discomfort in the right UE after wearing the sling for several hours yesterday. States right UE pain improves on days she removes sling at home. States she has been able to fix her hair with a curling iron, including the top and the back. *Precautions: LIMIT EXTERNAL ROTATION TO NEUTRAL Pain Assessment - Pain Description Pain Location: Right shoulder, upper extremity Pain Description: soreness Interventions - Exercise/Activities/Manual Therapy Exercises/Activities: PROM right shoulder flex, abd, and elbow flex/ext. AAROM flex and limited IR/ER. Isometric shoulder ext and add with manual resistance. Isometric right shoulder IR and ER in neutral. Wand for shoulder flex/ext with increased range, and chest press. Yellow theraband for resistive pulldowns short range. In sitting, assisted flexion and abd, then active flexion. Clasped hands shoulder flexion. Total minutes of Exercise: 52mins Manual Therapy: NA HOME EXERCISE PROGRAM: pt given written HEP including gentle scapular retraction , pendulum, AAROM shld flex. Isometric right shoulder flex, ext, and add with pillow and manual resistance. Active shoulder flexion in Codman's/cuff series position. Assisted wand for short flex/ext and short chest press in supine. Table slides. - Objective Findings Observations,measurements,etc.: Passive right shoulder flexion (supine) 154 degrees. Active right shoulder flexion 107 degrees, and active assited shoulder flexion 123 degrees. Right hand piping engineer 34# and left piping engineer 37#. - Charges Timed Code Treatment Minutes: 52mins Total Treatment Time: 52mins Procedures billed for this date of service:: EX3 Assessment: Patient progressing well with PROM and AAROM of the right shoulder. Patient Education: Home Exercise Program, Home Safety, Activity Modification Patient demonstrates compliance with HEP?: Yes Short Term Goals Goal #1: pt independent with initial HEP Goal to be met by: 05/05/18 Progress towards Goal:: Met Goal #2: Improve R shld ROM flex 75 abd 65 Goal to be met by: 05/05/18 Progress towards Goal:: Met Goal #3: pt with decreased edema R shld Goal to be met by: 05/05/18 Progress towards Goal:: Met Snf Goals Goal #1: Improve R shld ROM flex 90 abd 80, IR WFL's Goal to be met by: 05/19/18 Progress towards goal: Progressing Goal #2: pt able to perform ADL's independently including curling her hair. Goal to be met by: 05/19/18 Progress towards goal: Met Goal #3: Decrease pain <4/10 with activity Goal to be met by: 05/19/18 Progress towards goal: Progressing Plan Dates of Snf Goals: 05/19/18 Expiration date of current Insurance Approval:: 05/19/18 PLAN: Patient to see physician for a follow-up appointment. Continuation orders are anticipated and will be needed to progress with strengthening.
--- NOTE | 2018-05-20 14:23 | RS.PTSUM ---
Progress Note/Summary Date of Note: 05/20/18 Date of Evaluation: 04/21/18 Number of Visits: 13 Number of visits approved by Insurance: n/a Reporting Period for this Progress Note: 04/21/18-05/20/18 Current Complaints/Gains: pt states that MD was pleased with her progress, MD ordered to continue PT for strengthening with no ER past neutral. Objective Measurements/Presentation: PROM R shld flex in supine 154, AROM R shld flex 107, R hand client server programmer 34#, L hand client server programmer 37#. pt received R shld PROM flex, abd, elbow flex/ext, AAROM flex and limited IR/ER. Isometric shld ext and add with manual resistance. Isometric shld IR/ER in neutral. Wand for shld flex/ext and chest press 2 sets of 10 reps. Sitting: assisted flex and abd. G Codes: n/a Source of G Code Score: n/a - Short Term Goals Goal #1: pt independent with initial HEP Goal to be met by: 05/05/18 Progress towards Goal:: Met Goal #2: Improve R shld ROM flex 75 abd 65 Goal to be met by: 05/05/18 Progress towards Goal:: Met Goal #3: pt with decreased edema R shld Goal to be met by: 05/05/18 Progress towards Goal:: Met - Payment Specialist Goals Goal #1: Improve R shld AROM flex 120 abd 80, IR WFL's Goal to be met by: 06/10/18 (goal modified 05/20/18) Goal #2: pt able to perform ADL's independently including curling her hair. Goal to be met by: 05/19/18 Progress towards goal: Met Goal #3: Decrease pain <4/10 with activity Goal to be met by: 06/10/18 Progress towards goal: Progressing - Assessment Assessment of Improvement/Progress: pt progressing with R shld ROM as well as strength. pt continues to require skilled PT for therex for ROM, strengthening and pain control. Summary: Patient has made progress towards goals., Patient demonstrates potential to gain increased function with therapy - Plan Plan: Continue Plan of Care Comments: new order received to continue PT 3 wk 6. Frequency: 2-3 x a week Duration: 3 weeks Dates of Residential Goals: 06/10/18 Expiration date of current Insurance Approval:: n/a
--- NOTE | 2018-05-23 16:07 | RS.OPPTDN ---
Subjective Date of Note: 05/23/18 Visit #: 14 Number of visits approved by Insurance: NA Date of Evaluation: 04/21/18 Payer Source: MEDICARE Treatment Diagnosis: aftercare following total shld replacement, shld pain Current Subjective/complaints:: Patient reports she saw her physician for a follow-up. States he is pleased with her progress and she is to continue therapy. *Precautions: LIMIT EXTERNAL ROTATION TO NEUTRAL Pain Assessment - Pain Description Pain Location: right shoulder Current Pain Intensity: mild to mod Other Comments regarding Pain:: Discomfort is mainly in the anterior right shoulder joint. Interventions - Exercise/Activities/Manual Therapy Exercises/Activities: PROM right shoulder flex, abd, and elbow flex/ext. AAROM flex and limited IR/ER. Isometric shoulder ext and add with manual resistance. Isometric right shoulder IR and ER in neutral. Wand for shoulder flex/ext with increased range, and chest press. Yellow theraband for resistive pulldowns short range. In sitting, assisted flexion and abd, then active flexion. Total minutes of Exercise: 46mins Manual Therapy: NA HOME EXERCISE PROGRAM: pt given written HEP including gentle scapular retraction , pendulum, AAROM shld flex. Isometric right shoulder flex, ext, and add with pillow and manual resistance. Active shoulder flexion in Codman's/cuff series position. Assisted wand for short flex/ext and short chest press in supine. Table slides. - Charges Timed Code Treatment Minutes: 46mins Total Treatment Time: 48mins Procedures billed for this date of service:: EX3 Assessment: Patient progressing well with AAROM and gentle strengthening. Patient Education: Home Exercise Program Patient demonstrates compliance with HEP?: Yes Short Term Goals Goal #1: pt independent with initial HEP Goal to be met by: 05/05/18 Progress towards Goal:: Met Goal #2: Improve R shld ROM flex 75 abd 65 Goal to be met by: 05/05/18 Progress towards Goal:: Met Goal #3: pt with decreased edema R shld Goal to be met by: 05/05/18 Progress towards Goal:: Met Residential Goals Goal #1: Improve R shld AROM flex 120 abd 80, IR WFL's Goal to be met by: 06/10/18 (goal modified 05/20/18) Progress towards goal: Progressing Goal #2: pt able to perform ADL's independently including curling her hair. Goal to be met by: 05/19/18 Progress towards goal: Met Goal #3: Decrease pain <4/10 with activity Goal to be met by: 06/10/18 Progress towards goal: Progressing Plan Dates of Residential Goals: 06/10/18 Expiration date of current Insurance Approval:: 06/10/18 PLAN: Progress with AROM and gentle strengthening.
--- NOTE | 2018-05-25 11:39 | RS.OPPTDN ---
Subjective Date of Note: 05/25/18 Visit #: 15 Number of visits approved by Insurance: NA Date of Evaluation: 04/21/18 Payer Source: MEDICARE Treatment Diagnosis: aftercare following total shld replacement, shld pain Current Subjective/complaints:: Patient reports soreness at the right anterior superior shoulder joint. States she did her grocery shopping by herself and may have used the right UE more. *Precautions: LIMIT EXTERNAL ROTATION TO NEUTRAL Pain Assessment - Pain Description Pain Location: right shoulder joint Pain Description: Tightness Pain Description: soreness Current Pain Intensity: mild to mod Other Comments regarding Pain:: Reports soreness and a small area that seems to be swollen. PT palpated area and spoke with patient. She was reasured she did not appear to have injured the right shoulder. Interventions - Exercise/Activities/Manual Therapy Exercises/Activities: PROM right shoulder flex, abd, and elbow flex/ext. Isometric shoulder ext and add with manual resistance. Isometric right shoulder IR and ER in neutral. Increased to 3# wand for shoulder flex/ext with increased range, and chest press. Yellow theraband for resistive pulldowns short range. Added yellow theraband resisted chest press and overhead flexion with wand. Ball for isometric IR. In sitting, assisted flexion and abd, then active flexion. wand for overhead flexion and limited right shldr abd. Yellow and red theraband resisted scap retraction. Total minutes of Exercise: 51mins Manual Therapy: NA HOME EXERCISE PROGRAM: pt given written HEP including gentle scapular retraction , pendulum, AAROM shld flex. Isometric right shoulder flex, ext, and add with pillow and manual resistance. Active shoulder flexion in Codman's/cuff series position. Assisted wand for short flex/ext and short chest press in supine. Table slides. - Charges Timed Code Treatment Minutes: 51mins Total Treatment Time: 51mins Procedures billed for this date of service:: EX3 Assessment: Patient progressing with gentle strengthening and with ADL's. Patient Education: Home Exercise Program, Activity Modification Patient demonstrates compliance with HEP?: Yes Short Term Goals Goal #1: pt independent with initial HEP Goal to be met by: 05/05/18 Progress towards Goal:: Met Goal #2: Improve R shld ROM flex 75 abd 65 Goal to be met by: 05/05/18 Progress towards Goal:: Met Goal #3: pt with decreased edema R shld Goal to be met by: 05/05/18 Progress towards Goal:: Met Interventional Physician Goals Goal #1: Improve R shld AROM flex 120 abd 80, IR WFL's Goal to be met by: 06/10/18 (goal modified 05/20/18) Progress towards goal: Progressing Goal #2: pt able to perform ADL's independently including curling her hair. Goal to be met by: 05/19/18 Progress towards goal: Met Goal #3: Decrease pain <4/10 with activity Goal to be met by: 06/10/18 Progress towards goal: Progressing Plan Dates of Interventional Physician Goals: 06/10/18 Expiration date of current Insurance Approval:: 06/10/18 PLAN: Progress AROM and gentle strengthening.
== END 2018-05-26 23:59 ==
PROVIDERS: ATTEND Orthopaedic Surgery
DX: Z47.1 Aftercare following joint replacement surgery (principal); Z96.611 Presence of right artificial shoulder joint; M25.511 Pain in right shoulder; M25.411 Effusion, right shoulder; M62.81 Muscle weakness (generalized)

== ENCOUNTER 2018-06-17 10:00 | Outpatient (RCR) ==
--- NOTE | 2018-05-30 11:12 | RS.PTSUM ---
Progress Note/Summary Date of Note: 05/30/18 Date of Evaluation: 04/21/18 Objective Measurements/Presentation: Inadvertantly did not count the week pt was going to be out of town, Goal dates to be extended to 06/17/18 G Codes: n/a Source of G Code Score: n/a - Short Term Goals Goal #1: pt independent with initial HEP Goal to be met by: 05/05/18 Progress towards Goal:: Met Goal #2: Improve R shld ROM flex 75 abd 65 Goal to be met by: 05/05/18 Progress towards Goal:: Met Goal #3: pt with decreased edema R shld Goal to be met by: 05/05/18 Progress towards Goal:: Met - Fdc Goals Goal #1: Improve R shld AROM flex 120 abd 80, IR WFL's Goal to be met by: 06/17/18 (goal modified 05/20/18) Progress towards goal: Progressing Goal #2: pt able to perform ADL's independently including curling her hair. Goal to be met by: 05/19/18 Progress towards goal: Met Goal #3: Decrease pain <4/10 with activity Goal to be met by: 06/17/18 Progress towards goal: Progressing - Assessment Assessment of Improvement/Progress: goal dates extended due to pt to be out of town 06/06-06/10/18. Summary: Patient has made progress towards goals., Patient demonstrates potential to gain increased function with therapy - Plan Plan: Continue Plan of Care Frequency: 2-3 a week Duration: 4 weeks Dates of Nib Finisher Goals: 06/17/18 Expiration date of current Insurance Approval:: n/a
--- NOTE | 2018-05-30 12:16 | RS.OPPTDN ---
Subjective Date of Note: 05/30/18 Visit #: 16 Number of visits approved by Insurance: NA Date of Evaluation: 04/21/18 Payer Source: MEDICARE Treatment Diagnosis: aftercare following total shld replacement, shld pain Current Subjective/complaints:: Patient reports soreness continue at the right anterior shoulder joint, but feels she is progressing. States she is using the right UE more with light ADL's. *Precautions: LIMIT EXTERNAL ROTATION TO NEUTRAL Pain Assessment - Pain Description Pain Location: Right shoulder Current Pain Intensity: mild to mod with ROM Interventions - Exercise/Activities/Manual Therapy Exercises/Activities: PROM right shoulder flex, abd, and elbow flex/ext. Isometric shoulder ext and add with manual resistance. Isometric right shoulder IR and ER in neutral. Began passive ER of the right shoulder. 3# wand for shoulder flex/ext with increased range, and chest press. Increased to red theraband for resistive pulldowns short range. Added yellow theraband resisted chest press and overhead flexion with wand. Red theraband for resist IR. Wand for short range IR and ER. In sitting, assisted flexion and abd, then active flexion. Wand for shoulder flexion and abd. Red theraband resisted scap retraction. AA flexion and abd. Cuff series with 1# cuff weight. Total minutes of Exercise: 50mins Manual Therapy: NA HOME EXERCISE PROGRAM: pt given written HEP including gentle scapular retraction , pendulum, AAROM shld flex. Isometric right shoulder flex, ext, and add with pillow and manual resistance. Active shoulder flexion in Codman's/cuff series position. Assisted wand for short flex/ext and short chest press in supine. Table slides. Cuff series. - Charges Timed Code Treatment Minutes: 50mins Total Treatment Time: 52mins Procedures billed for this date of service:: EX3 Assessment: Patient progressing well with modified strengthening. Patient Education: Body/Joint mechanics, Home Exercise Program, Activity Modification Patient demonstrates compliance with HEP?: Yes Short Term Goals Goal #1: pt independent with initial HEP Goal to be met by: 05/05/18 Progress towards Goal:: Met Goal #2: Improve R shld ROM flex 75 abd 65 Goal to be met by: 05/05/18 Progress towards Goal:: Met Goal #3: pt with decreased edema R shld Goal to be met by: 05/05/18 Progress towards Goal:: Met Longterm Goals Goal #1: Improve R shld AROM flex 120 abd 80, IR WFL's Goal to be met by: 06/17/18 (goal modified 05/20/18) Progress towards goal: Progressing Goal #2: pt able to perform ADL's independently including curling her hair. Goal to be met by: 05/19/18 Progress towards goal: Met Goal #3: Decrease pain <4/10 with activity Goal to be met by: 06/17/18 Progress towards goal: Progressing Plan Dates of Longterm Goals: 06/17/18 Expiration date of current Insurance Approval:: 06/17/18 PLAN: Progress with active reaching and gentle strengthening to increase patients functional activity level.
--- NOTE | 2018-06-01 12:06 | RS.OPPTDN ---
Subjective Date of Note: 06/01/18 Visit #: 17 Number of visits approved by Insurance: NA Date of Evaluation: 04/21/18 Payer Source: MEDICARE Treatment Diagnosis: aftercare following total shld replacement, shld pain Current Subjective/complaints:: Patient reports doing more daily activities. State she did shopping yesterday and over-stretched her right shoulder, but soreness has resolved. *Precautions: LIMIT EXTERNAL ROTATION TO NEUTRAL Pain Assessment - Pain Description Pain Location: right shoulder, upper arm Pain Description: soreness Current Pain Intensity: mild Interventions - Exercise/Activities/Manual Therapy Exercises/Activities: PROM right shoulder flex, abd, and elbow flex/ext. Isometric shoulder ext and add with manual resistance. Isometric right shoulder IR and ER in neutral. Began passive ER of the right shoulder. 3# wand for shoulder flex/ext with increased range, and chest press. Short range flex/ext with 1# cuff weight. Red theraband for resistive pulldowns short range. Red theraband resisted chest press and overhead flexion with wand. Red theraband for resist IR. Wand for short range IR and ER. In sitting, assisted flexion and abd, then active flexion. Holds ball and performs chest press and overhead flexion. Wand for shoulder flexion and abd. Red theraband resisted scap retraction. AA flexion and abd. Discussed progression of resistance with cuff series. Total minutes of Exercise: 48mins Manual Therapy: NA HOME EXERCISE PROGRAM: pt given written HEP including gentle scapular retraction , pendulum, AAROM shld flex. Isometric right shoulder flex, ext, and add with pillow and manual resistance. Active shoulder flexion in Codman's/cuff series position. Assisted wand for short flex/ext and short chest press in supine. Table slides. Cuff series. - Charges Timed Code Treatment Minutes: 48mins Total Treatment Time: 52mins Procedures billed for this date of service:: EX3 Assessment: Patient progressing with ROM and strengthening. Patient Education: Home Exercise Program, Activity Modification Patient demonstrates compliance with HEP?: Yes Short Term Goals Goal #1: pt independent with initial HEP Goal to be met by: 05/05/18 Progress towards Goal:: Met Goal #2: Improve R shld ROM flex 75 abd 65 Goal to be met by: 05/05/18 Progress towards Goal:: Met Goal #3: pt with decreased edema R shld Goal to be met by: 05/05/18 Progress towards Goal:: Met [facility] Goals Goal #1: Improve R shld AROM flex 120 abd 80, IR WFL's Goal to be met by: 06/17/18 (goal modified 05/20/18) Progress towards goal: Progressing Goal #2: pt able to perform ADL's independently including curling her hair. Goal to be met by: 05/19/18 Progress towards goal: Met Goal #3: Decrease pain <4/10 with activity Goal to be met by: 06/17/18 Progress towards goal: Progressing Plan Dates of Usp Goals: 06/17/18 Expiration date of current Insurance Approval:: 06/17/18 PLAN: Progress with ROM and strengthening of the right UE to increase patients functional independence with all daily activities.
--- NOTE | 2018-06-03 14:33 | RS.OPPTDN ---
Subjective Date of Note: 06/03/18 Visit #: 18 Number of visits approved by Insurance: NA Date of Evaluation: 04/21/18 Payer Source: MEDICARE Treatment Diagnosis: aftercare following total shld replacement, shld pain Current Subjective/complaints:: Kelvin reports she is very careful with daily activities but is using the right UE more. States she will wear her sling when out of town for a convention if she feels she is oversuing the right UE. *Precautions: LIMIT EXTERNAL ROTATION TO NEUTRAL Pain Assessment - Pain Description Pain Location: right shoulder Pain Description: soreness Current Pain Intensity: mild Interventions - Exercise/Activities/Manual Therapy Exercises/Activities: PROM right shoulder flex, abd, and elbow flex/ext. Isometric shoulder ext and add with manual resistance. Isometric right shoulder IR and ER in neutral. Passive ER of the right shoulder. 3# wand for shoulder flex/ext with increased range, and chest press. Short range flex/ext with 1 1/2 # cuff weight. Red theraband for resistive pulldowns short range. Red theraband resisted chest press and overhead flexion with wand. Red theraband for resist IR. Began yellwo theraband for bilateral ER. All theraband ex in short ranges. Wand for short range IR and ER. In sitting, assisted flexion and abd, then active flexion. Holds ball and performs chest press and overhead flexion. Wand for shoulder flexion and abd. Red theraband resisted scap retraction. AA flexion and abd. Total minutes of Exercise: 49mins Manual Therapy: NA HOME EXERCISE PROGRAM: pt given written HEP including gentle scapular retraction , pendulum, AAROM shld flex. Isometric right shoulder flex, ext, and add with pillow and manual resistance. Active shoulder flexion in Codman's/cuff series position. Assisted wand for short flex/ext and short chest press in supine. Table slides. Cuff series. - Charges Timed Code Treatment Minutes: 49mins Total Treatment Time: 51mins Procedures billed for this date of service:: EX3 Assessment: Patient progressing well with strengthening exericse. Patient demonstrates compliance with HEP?: Yes Short Term Goals Goal #1: pt independent with initial HEP Goal to be met by: 05/05/18 Progress towards Goal:: Met Goal #2: Improve R shld ROM flex 75 abd 65 Goal to be met by: 05/05/18 Progress towards Goal:: Met Goal #3: pt with decreased edema R shld Goal to be met by: 05/05/18 Progress towards Goal:: Met Library Associate Goals Goal #1: Improve R shld AROM flex 120 abd 80, IR WFL's Goal to be met by: 06/17/18 (goal modified 05/20/18) Progress towards goal: Progressing Goal #2: pt able to perform ADL's independently including curling her hair. Goal to be met by: 05/19/18 Progress towards goal: Met Goal #3: Decrease pain <4/10 with activity Goal to be met by: 06/17/18 Progress towards goal: Progressing Plan Dates of Custodial Goals: 06/17/18 Expiration date of current Insurance Approval:: 06/17/18 PLAN: Patient will be out of town next week but will resume treatment the following week.
--- NOTE | 2018-06-13 12:58 | RS.OPPTDN ---
Subjective Date of Note: 06/13/18 Visit #: 19 Number of visits approved by Insurance: NA Date of Evaluation: 04/21/18 Payer Source: MEDICARE Treatment Diagnosis: aftercare following total shld replacement, shld pain Current Subjective/complaints:: Patient reports she feels she did well last week while out of town. States she was careful not to use the right UE too much. States she tried to continue a basic HEP. Reports a sharp pain last night in the lateral upper arm, but has not bothered her today. *Precautions: LIMIT EXTERNAL ROTATION TO NEUTRAL Pain Assessment - Pain Description Pain Location: right shoulder and upper arm Current Pain Intensity: mild Interventions - Exercise/Activities/Manual Therapy Exercises/Activities: PROM right shoulder flex, abd, and elbow flex/ext. Isometric shoulder ext and add with manual resistance. Isometric right shoulder IR and ER in neutral. Passive ER of the right shoulder. 3# wand for shoulder flex/ext with increased range, and chest press. Red theraband for resistive pulldowns short range, then added resisted short range flexion and chest press. Red theraband for resist right IR and ER. All theraband ex in short ranges. Wand for short range IR and ER. In sitting, assisted flexion and abd, then active flexion. Wand for chest press and overhead flexion. Wand for resisted scap retraction. AA flexion and abd. Began ball on the wall. Total minutes of Exercise: 51mins Manual Therapy: NA HOME EXERCISE PROGRAM: pt given written HEP including gentle scapular retraction , pendulum, AAROM shld flex. Isometric right shoulder flex, ext, and add with pillow and manual resistance. Active shoulder flexion in Codman's/cuff series position. Assisted wand for short flex/ext and short chest press in supine. Table slides. Cuff series. - Charges Timed Code Treatment Minutes: 51mins Total Treatment Time: 53mins Procedures billed for this date of service:: EX3 Assessment: Patient progressing with gentle strengthening and active reaching. Patient Education: Body/Joint mechanics, Home Exercise Program, Activity Modification Patient demonstrates compliance with HEP?: Yes Short Term Goals Goal #1: pt independent with initial HEP Goal to be met by: 05/05/18 Progress towards Goal:: Met Goal #2: Improve R shld ROM flex 75 abd 65 Goal to be met by: 05/05/18 Progress towards Goal:: Met Goal #3: pt with decreased edema R shld Goal to be met by: 05/05/18 Progress towards Goal:: Met Custodial Goals Goal #1: Improve R shld AROM flex 120 abd 80, IR WFL's Goal to be met by: 06/17/18 (goal modified 05/20/18) Progress towards goal: Progressing Goal #2: pt able to perform ADL's independently including curling her hair. Goal to be met by: 05/19/18 Progress towards goal: Met Goal #3: Decrease pain <4/10 with activity Goal to be met by: 06/17/18 Progress towards goal: Progressing Plan Dates of Book Agent Goals: 06/17/18 Expiration date of current Insurance Approval:: 06/17/18 PLAN: Progress with AROM and gentle strengthening to increase functional use of the right UE.
--- NOTE | 2018-06-15 15:51 | RS.OPPTDN ---
Subjective Date of Note: 06/15/18 Visit #: 20 Number of visits approved by Insurance: NA Date of Evaluation: 04/21/18 Payer Source: MEDICARE Treatment Diagnosis: aftercare following total shld replacement, shld pain Current Subjective/complaints:: Patient reports she is pleased with her continued progress. States she is doing more daily activities. States she can do her hair, some crafts, and light housework with minimal difficulty. *Precautions: LIMIT EXTERNAL ROTATION TO NEUTRAL Pain Assessment - Pain Description Pain Location: right shoulder Current Pain Intensity: mild Other Comments regarding Pain:: Pain increased with some use of the right UE with daily activities. Interventions - Exercise/Activities/Manual Therapy Exercises/Activities: PROM right shoulder flex, abd, and elbow flex/ext. Isometric shoulder ext and add with manual resistance. Isometric right shoulder IR and ER in neutral. Passive ER of the right shoulder. Ball squeeze shoulder IR , horz abd, and overhead. 3# wand for shoulder flex/ext with increased range, and chest press. Red theraband for resistive pulldowns short range, then added resisted short range flexion and chest press. Red theraband for resist right IR and ER. Wand for short range IR and ER. 1# cuff weight for right shoulder flex, scap, and horz abd. In sitting, assisted flexion and abd, then active flexion. 3# Wand for overhead flexion. Ball on the wall for isometric protraction. Total minutes of Exercise: 47mins Manual Therapy: NA HOME EXERCISE PROGRAM: pt given written HEP including gentle scapular retraction , pendulum, AAROM shld flex. Isometric right shoulder flex, ext, and add with pillow and manual resistance. Active shoulder flexion in Codman's/cuff series position. Assisted wand for short flex/ext and short chest press in supine. Table slides. Cuff series. - Objective Findings Observations,measurements,etc.: Active right shoulder flexion 120-123 deg, abd 115 deg. MMT 3 to 3+/5 in limited range. Upper Extremity Functional Scale increased to 55/80 or 31.25% (was 22/80 on Eval) - Charges Timed Code Treatment Minutes: 47mins Total Treatment Time: 47mins Procedures billed for this date of service:: EX3 Assessment: Patient continues to report improvement with use of the right UE with ADL's. Patient Education: Body/Joint mechanics, Home Exercise Program, Activity Modification Patient demonstrates compliance with HEP?: Yes Short Term Goals Goal #1: pt independent with initial HEP Goal to be met by: 05/05/18 Progress towards Goal:: Met Goal #2: Improve R shld ROM flex 75 abd 65 Goal to be met by: 05/05/18 Progress towards Goal:: Met Goal #3: pt with decreased edema R shld Goal to be met by: 05/05/18 Progress towards Goal:: Met Analytical Engineer Goals Goal #1: Improve R shld AROM flex 120 abd 80, IR WFL's Goal to be met by: 06/17/18 (goal modified 05/20/18) Progress towards goal: Partially Met Comments: Rotation limited Goal #2: pt able to perform ADL's independently including curling her hair. Goal to be met by: 05/19/18 Progress towards goal: Met Goal #3: Decrease pain <4/10 with activity Goal to be met by: 06/17/18 Progress towards goal: Progressing Plan Dates of Analytical Engineer Goals: 06/17/18 Expiration date of current Insurance Approval:: 06/17/18 PLAN: Continue this week to progress with goals, complete physicians orders, and increase functional use of the right UE with ADL's.
--- NOTE | 2018-06-17 14:25 | RS.OPPTDN ---
Subjective Date of Note: 06/17/18 Visit #: 21 Number of visits approved by Insurance: NA Date of Evaluation: 04/21/18 Payer Source: MEDICARE Treatment Diagnosis: aftercare following total shld replacement, shld pain Current Subjective/complaints:: Patient reports she is pleased with her progress. States she knows she has a way to go before she can do all daily activities, but feels she can continue HEP and make progress. *Precautions: LIMIT EXTERNAL ROTATION TO NEUTRAL Pain Assessment - Pain Description Pain Location: right shoulder Current Pain Intensity: mild Interventions - Exercise/Activities/Manual Therapy Exercises/Activities: PROM right shoulder flex, abd, and elbow flex/ext. Isometric shoulder ext and add with manual resistance. Isometric right shoulder IR and ER in neutral. Passive ER of the right shoulder. Ball squeeze shoulder IR , horz abd, and overhead. 3# wand for shoulder flex/ext with increased range, and chest press. 2# ball for proprioception work with right at 90 degrees flexion. Red theraband for resist right IR and ER. Wand for short range IR and ER. 1# cuff weight for right shoulder flex, scap, and horz abd. In sitting, assisted flexion and abd, then active flexion. 3# Wand for overhead flexion. Green theraband for scap retraction. Ball on the wall for isometric protraction. Total minutes of Exercise: 49mins Manual Therapy: NA HOME EXERCISE PROGRAM: pt given written HEP including gentle scapular retraction , pendulum, AAROM shld flex. Isometric right shoulder flex, ext, and add with pillow and manual resistance. Active shoulder flexion in Codman's/cuff series position. Assisted wand for short flex/ext and short chest press in supine. Table slides. Cuff series. Ball on the wall. - Objective Findings Observations,measurements,etc.: Active right shoulder flexion 158 degrees and assisted to 162 degrees. 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 She has completed all orders and met all 6 treatment goals. Patient Education: Body/Joint mechanics, Home Exercise Program, Home Safety, Activity Modification Patient demonstrates compliance with HEP?: Yes Short Term Goals Goal #1: pt independent with initial HEP Goal to be met by: 02/07/19 Progress towards Goal:: Met Goal #2: Improve R shld ROM flex 75 abd 65 Goal to be met by: 05/05/18 Progress towards Goal:: Met Goal #3: pt with decreased edema R shld Goal to be met by: 05/05/18 Progress towards Goal:: Met Assembler [employer] Goals Goal #1: Improve R shld AROM flex 120 abd 80, IR WFL's Goal to be met by: 06/17/18 (goal modified 05/20/18) Progress towards goal: Met Goal #2: pt able to perform ADL's independently including curling her hair. Goal to be met by: 05/19/18 Progress towards goal: Met Goal #3: Decrease pain <4/10 with activity Goal to be met by: 06/17/18 Progress towards goal: Met Plan Dates of Assembler [employer] Goals: 06/17/18 Expiration date of current Insurance Approval:: 06/17/18 PLAN: Disscharge with HEP.
--- NOTE | 2018-06-17 16:26 | RS.PTSUM ---
Progress Note/Summary Date of Note: 06/15/18 Date of Evaluation: 04/21/18 Number of Visits: 20 Number of visits approved by Insurance: n/a Reporting Period for this Progress Note: 04/21/18-06/15/18 Current Complaints/Gains: pt reports progress with use of RUE with all ADL's. Reports she is able to do her own hair, crafts and light housework with minimal difficulty. Consistent with HEP. Objective Measurements/Presentation: pt R shld active flex 120-123, abd 115. R shld strength 3 to 3+/5 in limited ROM. Independent with initial HEP. UE functional scale has improved from 22/80 to 55/80. G Codes: n/a Source of G Code Score: n/a - Short Term Goals Goal #1: pt independent with initial HEP Goal to be met by: 05/05/18 Progress towards Goal:: Met Goal #2: Improve R shld ROM flex 75 abd 65 Goal to be met by: 05/05/18 Progress towards Goal:: Met Goal #3: pt with decreased edema R shld Goal to be met by: 05/05/18 Progress towards Goal:: Met - Urgent Care Physician Goals Goal #1: Improve R shld AROM flex 120 abd 80, IR WFL's Goal to be met by: 06/17/18 (goal modified 05/20/18) Progress towards goal: Progressing Goal #2: pt able to perform ADL's independently including curling her hair. Goal to be met by: 05/19/18 Progress towards goal: Met Goal #3: Decrease pain <4/10 with activity Goal to be met by: 06/17/18 Progress towards goal: Progressing - Assessment Assessment of Improvement/Progress: pt has met all STG as well as LTG 2. pt has made improvement with ROM as well as strength and improved functional ability. Summary: Patient has made progress towards goals., Patient demonstrates potential to gain increased function with therapy - Plan Plan: Continue Plan of Care Comments: plan to dc this week with focus on independence with all regular ADL's Frequency: 2 X week Duration: 1 week Dates of Urgent Care Physician Goals: 06/17/18 Expiration date of current Insurance Approval:: n/a
--- NOTE | 2018-06-17 16:30 | RS.OPPTDC ---
Date of Discharge: 06/17/18 Date of Evaluation: 04/21/18 Number of Visits: 21 Treatment Diagnosis: aftercare following total shld replacement, shld pain Current Level of Function: AROM R shld flex 158 abd 162. R a and p mechanic strength 28#, L a and p mechanic strength 24#. pt is independent with HEP. pt has met 6/6 treatment goals. Current Complaints/Gains: pt is pleased with progress. Performing more light ADL 's and plans to continue HEP. Functional Outcome Measure UE Functional Index: 55 - G Codes & Severity Modifier G Codes & Modifier: n/a Source of G Code score: n/a Observation - Observation Posture: Forward Head, Rounded Shoulders Gait - Gait Pattern General Gait Pattern Observation: No Deviations/Normal Interventions - Exercise/Activities/Manual Therapy Exercises/Activities: n/a Manual Therapy: NA HOME EXERCISE PROGRAM: pt given written HEP including gentle scapular retraction , pendulum, AAROM shld flex. Isometric right shoulder flex, ext, and add with pillow and manual resistance. Active shoulder flexion in Codman's/cuff series position. Assisted wand for short flex/ext and short chest press in supine. Table slides. Cuff series. Ball on the wall. - Charges Timed Code Treatment Minutes: n/a Total Treatment Time: n/a Procedures billed for this date of service:: n/a Assessment Assessment: pt has met all goals. pt is independent with HEP . pt has improved to being independent with ADL's and ROM WFL's. Patient Education: Home Exercise Program, Education of Plan of Care Rehab Potential: Good Short Term Goals Goal #1: pt independent with initial HEP Goal to be met by: 05/05/18 Progress towards Goal:: Met Goal #2: Improve R shld ROM flex 75 abd 65 Goal to be met by: 05/05/18 Progress towards Goal:: Met Goal #3: pt with decreased edema R shld Goal to be met by: 05/05/18 Progress towards Goal:: Met Hand I Cutter Goals Goal #1: Improve R shld AROM flex 120 abd 80, IR WFL's Goal to be met by: 06/17/18 (goal modified 05/20/18) Progress towards goal: Met Goal #2: pt able to perform ADL's independently including curling her hair. Goal to be met by: 05/19/18 Progress towards goal: Met Goal #3: Decrease pain <4/10 with activity Goal to be met by: 06/17/18 Progress towards goal: Met Plan Reason for Discharge:: All Goals Met
== END 2018-06-26 23:59 ==
PROVIDERS: ATTEND Orthopaedic Surgery
DX: Z47.1 Aftercare following joint replacement surgery (principal); Z96.611 Presence of right artificial shoulder joint; M25.511 Pain in right shoulder; M25.411 Effusion, right shoulder; M62.81 Muscle weakness (generalized)

== ENCOUNTER 2018-08-30 09:30 | Outpatient (CLI) | payer OTHER ==
--- NOTE | 2018-08-30 10:41 | DEXA ---
EXAM: Bone densitometry. History: Postmenopausal. Findings: Evaluation of the lumbar spine reveals a total bone mineral density of 1.475 grams per centimeter squ ared with T-score of 2.5. Evaluation of the left hip reveals a total bone mineral density of 0.973 grams per centimeter squared with T-score of negative 0.3. Evaluation of the right hip reveals a total bone mineral density of 1.021 grams per centimeter square d with T-score of 0.1. FRAX: 10-year probability for major osteoporotic fracture is 9.8% and 0.7% for hip fracture. Impression: Normal bone mineral density of the lumbar spine and bilateral hips
--- NOTE | 2018-08-31 10:45 | MAMMO ---
EXAM: Bilateral digital screening mammogram (2-D and 3-D) History: Screening Comparison: Bilateral mammogram 08/26/2017 Findings: MLO and CC views of bilateral breasts demonstrate scattered fibroglandular breast parenchy ma. CAD was reviewed by the radiologist. Tomosynthesis was performed. There are no dominant masses , no suspicious microcalcifications and no architectural distortions Impression: Stable negative mammogram. Recommend followup routine screening mammography in 1 year. BI-RADS 1, negative
== END 2018-08-30 09:31 | disposition home or self-care (01) ==
LOC: RAD 09:30
PROVIDERS: ATTEND Family Medicine
DX: Z12.31 Encounter for screening mammogram for malignant neoplasm of breast (principal); Z78.0 Asymptomatic menopausal state; Z91.89 Other specified personal risk factors, not elsewhere classified; E89.40 Asymptomatic postprocedural ovarian failure